=== PATIENT | male | born 1970 ===

== ENCOUNTER 2025-03-06 04:28 | Outpatient (CLI) | payer BC, SELFPAY ==
[2025-03-06 09:56] LABS: Abs Immature Grans 0.11 10^3/uL (0.0-0.06); HCT 33.6 % (40.0-50.0); HGB 10.8 g/dL (13.5-17.5); Immature Grans % 1.3 %; MCH 33.1 pg (27.0-33.0); MCHC 32.1 % (32.0-36.0); MCV 103 fL (80-95); MPV 9.4 fL (8.0-11.0); RBC 3.26 10^6/uL (4.36-5.78); RDW 24.3 % (11.8-14.1); RDW-SD 89.0 fL; WBC 8.53 10^3/uL (4.4-10.8)
[2025-03-06 10:09] LABS: Anisocytosis 1+; Platelet Count 61 10^3/uL (130-400)
[2025-03-06 10:18] LABS: ALT 92 U/L (16-63); AST 42 U/L (15-37); Albumin 3.4 g/dL (3.4-5.0); Alkaline Phosphatase 96 U/L (46-116); Anion Gap 10.2 mmol/L (3-11); BUN 33 mg/dL (7-18); Bilirubin, Total 0.4 mg/dL (0.2-1.0); CO2 25.8 mmol/L (21.0-32.0); Calcium 8.5 mg/dL (8.5-10.1); Chloride 102 mmol/L (98-107); Estimated GFR 103.87 (mL/min/1.73m2); Glucose 131 mg/dL (74-106); LDH 154 U/L (85-227); Potassium 4.3 mmol/L (3.5-5.1); Sodium 138 mmol/L (136-145); Total Protein 6.8 g/dL (6.4-8.2); Uric Acid 2.5 mg/dL (3.5-7.2)
[2025-03-06 10:51] LABS: Ferritin 463 ng/mL (26-388)
[2025-03-06 11:14] LABS: Iron 81 ug/dL (65-175); Total Iron Binding Capacity 316 ug/dL (250-450); Transferrin Sat 26 % (20-55)
== END 2025-03-06 04:29 | disposition home or self-care (01) ==
LOC: LBO 04:29
PROVIDERS: Visit Provider Internal Medicine Hematology & Oncology
DX: C91.10 Chronic lymphocytic leukemia of B-cell type not having achieved remission (principal); D59.10 Autoimmune hemolytic anemia, unspecified; D69.3 Immune thrombocytopenic purpura
CPT/HCPCS: 36415; 80053; 86850; 86900; 86901; 82728; 83540; 83550; 83615; 84550; 85025; 85045; 86870

== ENCOUNTER 2025-03-12 10:54 | Outpatient (CLI) | payer BC, SELFPAY ==
[2025-03-12 11:21] LABS: Iron 125 ug/dL (65-175); Total Iron Binding Capacity 314 ug/dL (250-450); Transferrin Sat 40 % (20-55)
[2025-03-12 11:29] LABS: ALT 102 U/L (16-63); AST 49 U/L (15-37); Albumin 3.4 g/dL (3.4-5.0); Alkaline Phosphatase 74 U/L (46-116); Anion Gap 9.1 mmol/L (3-11); BUN 27 mg/dL (7-18); Bilirubin, Total 0.5 mg/dL (0.2-1.0); CO2 26.9 mmol/L (21.0-32.0); Calcium 8.5 mg/dL (8.5-10.1); Chloride 103 mmol/L (98-107); Estimated GFR 103.87 (mL/min/1.73m2); Ferritin 330 ng/mL (26-388); Glucose 97 mg/dL (74-106); LDH 147 U/L (85-227); Potassium 3.9 mmol/L (3.5-5.1); Sodium 139 mmol/L (136-145); Total Protein 6.6 g/dL (6.4-8.2); Uric Acid 2.2 mg/dL (3.5-7.2)
[2025-03-12 11:33] LABS: Abs Immature Grans 0.04 10^3/uL (0.0-0.06); HCT 32.7 % (40.0-50.0); HGB 10.8 g/dL (13.5-17.5); Immature Grans % 0.6 %; MCH 33.9 pg (27.0-33.0); MCHC 33.0 % (32.0-36.0); MCV 103 fL (80-95); MPV 9.9 fL (8.0-11.0); RBC 3.19 10^6/uL (4.36-5.78); RDW 22.9 % (11.8-14.1); RDW-SD 84.2 fL; WBC 6.79 10^3/uL (4.4-10.8)
[2025-03-12 12:14] LABS: Anisocytosis 2+; Platelet Count 89 10^3/uL (130-400)
== END 2025-03-12 10:55 | disposition home or self-care (01) ==
LOC: LBO 10:54
PROVIDERS: Visit Provider Internal Medicine Hematology & Oncology
DX: C91.10 Chronic lymphocytic leukemia of B-cell type not having achieved remission (principal); D59.10 Autoimmune hemolytic anemia, unspecified; D69.3 Immune thrombocytopenic purpura
CPT/HCPCS: 36415; 80053; 82728; 83540; 83550; 83615; 84550; 85025; 85045

== ENCOUNTER 2025-03-20 11:59 | Outpatient (CLI) | payer BC, SELFPAY ==
[2025-03-20 12:03] LABS: Abs Immature Grans 0.04 10^3/uL (0.0-0.06); HCT 35.4 % (40.0-50.0); HGB 12.0 g/dL (13.5-17.5); Immature Grans % 0.7 %; MCH 34.0 pg (27.0-33.0); MCHC 33.9 % (32.0-36.0); MCV 100 fL (80-95); MPV 9.3 fL (8.0-11.0); Platelet Count 109 10^3/uL (130-400); RBC 3.53 10^6/uL (4.36-5.78); RDW 20.5 % (11.8-14.1); RDW-SD 73.7 fL; WBC 6.05 10^3/uL (4.4-10.8)
[2025-03-20 12:21] LABS: Anisocytosis 2+
[2025-03-20 12:27] LABS: ALT 101 U/L (16-63); AST 53 U/L (15-37); Albumin 3.7 g/dL (3.4-5.0); Alkaline Phosphatase 71 U/L (46-116); Anion Gap 9.3 mmol/L (3-11); BUN 33 mg/dL (7-18); Bilirubin, Total 0.5 mg/dL (0.2-1.0); CO2 28.7 mmol/L (21.0-32.0); Calcium 9.1 mg/dL (8.5-10.1); Chloride 100 mmol/L (98-107); Estimated GFR 103.22 (mL/min/1.73m2); Glucose 108 mg/dL (74-106); LDH 180 U/L (85-227); Potassium 4.1 mmol/L (3.5-5.1); Sodium 138 mmol/L (136-145); Total Protein 6.8 g/dL (6.4-8.2); Uric Acid 2.4 mg/dL (3.5-7.2)
[2025-03-20 13:04] LABS: Iron 61 ug/dL (65-175); Total Iron Binding Capacity 355 ug/dL (250-450); Transferrin Sat 17 % (20-55)
[2025-03-20 13:35] LABS: Ferritin 337 ng/mL (26-388)
== END 2025-03-20 12:00 | disposition home or self-care (01) ==
LOC: LBO 11:59
PROVIDERS: Visit Provider Internal Medicine Hematology & Oncology
DX: C91.10 Chronic lymphocytic leukemia of B-cell type not having achieved remission (principal); D59.10 Autoimmune hemolytic anemia, unspecified; D69.3 Immune thrombocytopenic purpura
CPT/HCPCS: 36415; 80053; 82728; 83540; 83550; 83615; 84550; 85025; 85045